=== PATIENT | female | born 1955 | race Caucasian/White ===

== ENCOUNTER 2016-09-15 08:18 | Day surgery (SDC) | payer OTHER ==
[~2016-09-15] VITALS: Ht 152.4 cm; Wt 71.2 kg
[~2016-09-15 08:18] MED LIST: CALCIUM 500 MG1 EACH PO; CALTRATE 600 +1 EAC1 PO; FOSAMAX70 MG PO; HYDROCHLOROTHIA25 MG PO; K-DUR20 MEQ PO; LEXAPRO20 MG PO; PRAVASTATIN SOD20 MG PO; PROCARDIA XL90 MG PO
[2016-09-15 09:10] VITALS: BP 137/70
[2016-09-15 11:20] VITALS: BP 131/63
== END 2016-09-15 12:04 | disposition home or self-care (01) ==
LOC: EDBD → SDC 08:18
DX: H35.341 Macular cyst, hole, or pseudohole, right eye (principal); I10 Essential (primary) hypertension; Z82.49 Family history of ischemic heart disease and other diseases of the circulatory system; Z80.0 Family history of malignant neoplasm of digestive organs; Z81.8 Family history of other mental and behavioral disorders
CPT/HCPCS: J0690; J2250; J3300